=== PATIENT | female | born 1945 | race Caucasian/White ===

== ENCOUNTER 2025-07-05 13:55 | Outpatient (RCR) | payer MEDICARE, SELFPAY | END 2025-07-09 23:59 | disposition home or self-care (01) | LOC: GPT 13:55 | PROVIDERS: Visit Provider Family Medicine | DX: M79.652 Pain in left thigh (principal); M79.605 Pain in left leg; M25.572 Pain in left ankle and joints of left foot; G89.29 Other chronic pain | CPT/HCPCS: 97110; 97140; 97161 ==

== ENCOUNTER 2025-08-09 12:40 | Outpatient (RCR) | payer MEDICARE, SELFPAY | END 2025-08-09 23:59 | disposition home or self-care (01) | LOC: GPT 12:40 | PROVIDERS: Visit Provider Family Medicine | DX: M79.652 Pain in left thigh (principal); R26.2 Difficulty in walking, not elsewhere classified; R53.1 Weakness | CPT/HCPCS: 97110; 97112; 97140 ==